=== PATIENT | female | born 1945 | race Hispanic/Latino ===

== ENCOUNTER 2018-08-14 13:30 | Outpatient (CLI) | payer MEDICARE ==
--- NOTE | 2018-08-14 14:57 | Mammography Report ---
BILATERAL DIGITAL SCREENING MAMMOGRAM with CAD: 08/14/18 13:30:00 CLINICAL: Routine screening. COMPARISON: 02/07/13 FINDINGS: There are bilateral scattered areas of fibroglandular density.No mass, architectural distortion or suspicious calcifications. IMPRESSION: No mammographic evidence of malignancy. BI-RADS CATEGORY: 1 -- Negative RECOMMENDATION: Routine mammographic screening in one year. COMMENT: Patient follow-up letters are generated by our [employer] application.
== END 2018-08-14 13:31 | disposition home or self-care (01) ==
LOC: SPVWC 13:30
PROVIDERS: ATTEND Family Medicine
DX: Z12.31 Encounter for screening mammogram for malignant neoplasm of breast (principal)
CPT/HCPCS: 77067

== ENCOUNTER 2020-04-28 13:57 | Outpatient (CLI) | payer MEDICARE ==
--- NOTE | 2020-04-28 15:51 | Mammography Report ---
DIGITAL SCREENING MAMMOGRAM WITH CAD, 04/28/2020 CLINICAL INFORMATION / INDICATION: Routine screening mammography. SCREENING MAMMOGRAM TECHNIQUE: Digital bilateral 2D mammography was obtained in the craniocaudal and mediolateral obliqu e projections. This examination was interpreted with the benefit of Computer-Aided Detection analysis . COMPARISON: 02/07/2013 and 08/14/2018. FINDINGS: Breast Density: There are scattered areas of fibroglandular density. No dominant mass, suspicious calcifications, or architectural distortion in either breast. A small benign-appearing lymph node in the right axillary tail is stable. IMPRESSION: No mammographic evidence of malignancy. Follow up recommendation: Routine yearly BI-RADS Category 2: Benign. A "normal" or negative report should not discourage follow up or biopsy of a clinically significant f inding. A written summary of these findings will be mailed to the patient. The patient will be entered into a mammography reporting system which will generate a reminder letter for the patient's next appointmen t at the appropriate interval. The [employer] recommends yearly mammograms starting at age 40 and continuing as l jd as a woman is in good health. Breast MRI is recommended for women with an approximate 20-25% or greater lifetime risk of breast cancer, including women with a strong family history of breast or ova melanie cancer or who have been treated for Hodgkin's disease. Signer Name: Ebenezer Riley MD Signed: 04/28/2020 3:47 PM Workstation Name: [id number] [email or web address] [id number]
== END 2020-04-28 13:58 | disposition home or self-care (01) ==
LOC: SPVWC 13:57
PROVIDERS: ATTEND Family Medicine
DX: Z12.31 Encounter for screening mammogram for malignant neoplasm of breast (principal)
CPT/HCPCS: 77067

== ENCOUNTER 2020-06-16 09:40 | Outpatient (CLI) | payer MEDICARE ==
--- NOTE | 2020-06-16 12:12 | Ultrasound Report ---
ULTRASOUND ABDOMEN, COMPLETE INDICATION / CLINICAL INFORMATION: EPIGASTRIC PAIN R10.13. COMPARISON: None available. FINDINGS: PANCREAS: No significant abnormality. ABDOMINAL AORTA: No significant abnormality. IVC: No significant abnormality. LIVER: Minimal diffuse increase in echogenicity throughout the hepatic parenchyma. No focal hepatic l esions. GALLBLADDER: No significant abnormality. BILE DUCTS: No significant abnormality. Common bile duct measures 5 mm. KIDNEYS: Right: No significant abnormality. Left: 1.8 cm area of hyperechoic abnormality inferior po le left kidney best seen series 1 image 82. SPLEEN: No significant abnormality. FREE FLUID: None. ADDITIONAL FINDINGS: None. IMPRESSION: 1. Area of hyperechogenicity in the left inferior pole of the kidney. This area is not well-visualize d on other images and may represent a focal renal lesion versus prominent appearing renal pelvic fat. Dedicated contrast-enhanced CT is recommended for further evaluation/characterization. 2. Diffuse hepatic steatosis. 3. No cholelithiasis or acute cholecystitis. Signer Name: Francesco Lazo MD Signed: 06/16/2020 12:08 PM Workstation Name: [id number]
== END 2020-06-16 09:41 | disposition home or self-care (01) ==
LOC: SPVWC 09:40
PROVIDERS: ATTEND Family Medicine
DX: K76.0 Fatty (change of) liver, not elsewhere classified (principal); N28.89 Other specified disorders of kidney and ureter
CPT/HCPCS: 76700